=== PATIENT | female | born 1970 | race Caucasian/White ===

== ENCOUNTER 2024-08-25 08:31 | Outpatient (AMB) | payer BC, SELFPAY ==
--- NOTE | 2024-08-25 08:36 | A.OFFVIS_ITS ---
Vital Signs 08/25/24 08:39 Height 5 ft 6 in Weight 210 lb 12.191 oz BMI 34.0 BP 100/60 Blood Pressure Location Lt brachial Position Sitting Pulse 86 Pulse Source Pulse Oximeter Pulse Oximetry (%) 96 Oxygen Delivery Method Room Air Intake Visit Reasons: OA/cm Intake Note: Patient is here to follow up on OA. Allergies bacitracin [From Triple Antibiotic] Allergy (Mild, Verified 08/25/24 08:43) Rash celecoxib [From Celebrex] Allergy (Mild, Verified 08/25/24 08:43) Rash neomycin [From Triple Antibiotic] Allergy (Mild, Verified 08/25/24 08:43) Rash polymyxin B [From Triple Antibiotic] Allergy (Mild, Verified 08/25/24 08:43) Rash medical tape Allergy (Mild, Uncoded 08/25/24 08:43) Rash HPI HPI OA/cm: Details: lost 15lb on zepbound. Feels less pain/overall soreness. Left elbow pain started a couple of months ago. Lifting up cuff hurts. She has been applying diclofenac gel with benefit. She is avoiding sleeping on her left side due to pain. She is experiencing bilateral trochanteric bursa pain but left is worse than right. [facility] Medical History (Updated 08/25/24 @ 13:36 by Steven Becerra MD) Spondylarthritis Surgical History (Updated 08/25/24 @ 08:53 by Joann Bernal CMA) No pertinent past surgical history Family History (Updated 08/25/24 @ 08:54 by Joann Bernal CMA) Father Stroke Hypertension Mother Hypertension Hypercholesterolemia Diabetes Social History (Updated 08/25/24 @ 08:55 by Joann Bernal CMA) Alcohol intake: current Alcohol intake frequency: holidays/special occasions only Patient Tobacco Use Status: Never used Tobacco Review of Systems Const All systems reviewed & are unremarkable except as noted in HPI and below Physical Exam Vital Signs: Last Vital Signs Pulse 86 08/25/24 08:39 BP 100/60 08/25/24 08:39 Pulse Ox 96 08/25/24 08:39 Oxygen Delivery Method Room Air 08/25/24 08:39 BMI result Body Mass Index 34.0 Const Other: General: Comfortable CVS: RRR Respiratory: clear to auscultation bilaterally. Good respiratory effort Skin: No lesions seen MSK: Tender to palpate left lateral epicondyle with pain with resisted wrist extension. No synovitis of any joints. Good range of motion of upper extremities and lower extremities. Bilateral trochanteric bursa tenderness was palpated. Office Procedures AMB Joint Injection/Aspiration Joint Injection/Aspiration Secondary Site: left tennis elbow Prep: site was prepped using aseptic technique Injected: 20 mg of, Kenalog, with 0.5 mL of and 1% plain lidocaine Procedure: The patient tolerated the procedure well Coding 76209 - Epicondyle Procedure code (CPT) selection complete AMB Joint Injection/Aspiration Joint Injection/Aspiration Details: Left trochanteric bursa Prep: site was prepped using aseptic technique Injected: 40 mg of, Kenalog, with 1 mL of and 1% plain lidocaine Procedure: The patient tolerated the procedure well Coding 45993 - Large joint Procedure code (CPT) selection complete Office Meds Kenalog 40 mg/mL suspension for injection Performing Provider: Steven Becerra MD Performing Location: [facility] Administered by: Steven Becerra MD on 08/25/24 13:29 Dose Route Admin Location Dispensed Lot Number Expiration Date [facility][NOTE 3] Shovel Logger 20 mg Tendon Sheath Inj. 1 mL AP [id number] [employer] lidocaine (PF) 10 mg/mL (1 %) injection solution Performing Provider: Steven Becerra MD Performing Location: [facility] [place] [facility] Administered by: Steven Becerra MD on 08/25/24 13:29 Dose Route Admin Location Dispensed Lot Number Expiration Date [facility][NOTE 3] Shovel Logger 5 mg Infiltration 2 mL [id number] [facility] Kenalog 40 mg/mL suspension for injection Performing Provider: Steven Becerra MD Performing Location: [facility] [place] [facility] Administered by: Steven Becerra MD on 08/25/24 13:31 Dose Route Admin Location Dispensed Lot Number Expiration Date [facility][NOTE 3] Shovel Logger 40 mg intrabursal 1 mL AP [id number] [employer] lidocaine (PF) 10 mg/mL (1 %) injection solution Performing Provider: Steven Becerra MD Performing Location: [facility] [place] [facility] Administered by: Steven Becerra MD on 08/25/24 13:31 Dose Route Admin Location Dispensed Lot Number Expiration Date [facility][NOTE 3] Shovel Logger 10 mg Infiltration 2 mL [id number] [facility] Assessment & Plan Assessment & Plan (1) Spondylarthritis: Comment: History of spondyloarthropathy with HLA B27 positivity presenting with peripheral inflammatory arthritis and plantar fasciitis. Sulfasalazine started 02/08/2023 until present. In clinical remission. Code(s): M47.819 - Spondylosis without myelopathy or radiculopathy, site unspecified Category: Medical Plan: Continue sulfasalazine 1000 mg b.i.d. after lab results are back, we will send 90 day prescription. Labs for disease and drug monitoring ordered Return to clinic in 3 months (2) Other terminal system operator (current) drug therapy: Code(s): Z79.899 - Other terminal system operator (current) drug therapy Category: Medical Plan: See above (3) Medial epicondylitis, left elbow: Comment: Pain is uncontrolled. We discussed conservative management. She prefers cortisone injection over physical therapy. Code(s): M77.02 - Medial epicondylitis, left elbow Category: Medical Plan: Cortisone injection for treatment of lateral epicondylitis was given today Return to clinic in 3 months (4) Greater trochanteric bursitis of both hips: Comment: Left trochanteric bursa pain is greater than right side. We discussed conservative management Code(s): M70.61 - Trochanteric bursitis, right hip; M70.62 - Trochanteric bursitis, left hip Category: Medical Plan: Left trochanteric bursa cortisone injection given today Return to clinic in 3 months Orders: Orders Alanine Aminotransferase Today Z79.899 - Other terminal system operator (current) drug therapy Aspartate Amino Transferase Today Z79.899 - Other shelter (current) drug therapy C Reactive Protein Today Z79.899 - Other shelter (current) drug therapy Erythrocyte Sedimentation Rate Today Z79.899 - Other terminal system operator (current) drug therapy T Spot TB Today Z79.899 - Other terminal system operator (current) drug therapy AMB Joint Injection/Aspiration Today M77.02 - Medial epicondylitis, left elbow AMB Joint Injection/Aspiration Today M70.61 - Trochanteric bursitis, right hip, M70.62 - Trochanteric bursitis, left hip Creatinine Today Z79.899 - Other terminal system operator (current) drug therapy Complete Blood Count Auto Diff Today Z79.899 - Other shelter (current) drug therapy Hepatitis B,C Profile Today Z79.899 - Other shelter (current) drug therapy Coding Level of Care Code Est Pt Level 4 (10712) Complex EM visit Add On G2211 Diagnoses Spondylarthritis M47.819 Other shelter (current) drug therapy Z79.899 Medial epicondylitis, left elbow M77.02 Greater trochanteric bursitis of both hips M70.61; M70.62 CPT Codes Coding - Joint 2: - Epicondyle ([id number]) Coding - Large joint: 93793 - Large joint ([id number]) Comment Modifier 59 as needed 2 separate joint procedures
[2024-08-25 08:39] VITALS: BP 100/60; PULSE 86; O2SAT 96; BMI 34.0
== END 2024-08-25 09:50 | disposition home or self-care (01) ==
PROVIDERS: PCP Internal Medicine; Visit Provider Internal Medicine Rheumatology
DX: M47.819 Spondylosis without myelopathy or radiculopathy, site unspecified (principal); Z79.899 Other long term (current) drug therapy; M77.02 Medial epicondylitis, left elbow; M70.61 Trochanteric bursitis, right hip; M70.62 Trochanteric bursitis, left hip
CPT/HCPCS: 20551; 20610; 99214

== ENCOUNTER 2024-08-25 14:08 | Outpatient (REF) | payer OTHER, SELFPAY ==
[2024-08-25 17:36] LABS: MANUAL DIFF FLAG NO
[2024-08-25 17:47] LABS: Basophils Percent Auto 0.8 % (0-2); Eosinophils Percent Auto 0.8 % (0-4); Hematocrit 39.5 % (37.0-47.0); Imm Gran Abs Auto 0.01 X10*3/uL (0.00-0.03); Imm Gran Pct Auto 0.2 % (0.0-0.4); Mean Corpuscular HGB Conc 32.9 g/dl (31.0-35.0); Mean Platelet Volume 9.3 fL (9.4-12.3); Monocytes Absolute Auto 0.3 X10*3/uL (0.1-1.2); Monocytes Percent Auto 6.4 % (2-11); Neutrophils Absolute Auto 3.9 x10*3/uL (2.0-8.3); Neutrophils Percent Auto 73.8 % (45-73); Platelet Count 385 X10*3/uL (160-400); Red Cell Distribution Width 12.8 % (11.0-16.0); White Blood Count 5.3 X10*3/uL (4.8-10.8)
[2024-08-25 17:50] LABS: Alanine Aminotransferase 22 U/L (0-31); Aspartate Amino Transferase 24 U/L (5-31); Estimated Glomerular Filt Rate > 60
[2024-08-25 18:55] LABS: Erythrocyte Sedimentation Rate 25 MM/HR (0-20)
[2024-08-26 04:59] LABS: HBc Num1 0.08 S/CO (0.00-0.79); HBsAGNum1 0.56 S/CO (0.00-0.99); Hepatitis B Core Antibody Nonreactive (Nonreactive); Hepatitis B Surface Antigen Negative (Negative); ~HepC Num1 0.13 S/CO (0.00-0.79); ~Hepatitis B Surface Antibody REACTIVE (Nonreactive); ~Hepatitis C Antibody Nonreactive (Nonreactive)
[2024-08-28 08:48] LABS: TS Negative Control Passed; TS Panel A 0; TS Panel B 1; TS Positive Control Passed; TSpotTB Negative (Negative)
== END 2024-08-25 14:09 | disposition home or self-care (01) ==
LOC: HO.WFDLDS 14:08
PROVIDERS: Visit Provider Internal Medicine Rheumatology
DX: M70.61 Trochanteric bursitis, right hip (principal); M70.62 Trochanteric bursitis, left hip; M47.819 Spondylosis without myelopathy or radiculopathy, site unspecified; Z79.899 Other long term (current) drug therapy; M77.02 Medial epicondylitis, left elbow
CPT/HCPCS: 20551; 20610; 36415; 82565; 84450; 84460; 85025; 85652; 86140; 86481; 86704; 86706; 86803; 87340; J2003; J3300

== ENCOUNTER 2024-11-30 10:00 | Outpatient (REF) | payer BC, SELFPAY ==
--- NOTE | ~2024-11-30 | XR_ITS ---
EXAMINATION: XR HAND 3 OR MORE VIEWS LEFT HISTORY: M79.642 - Pain in left hand COMPARISON: There are no prior studies available for comparison. FINDINGS: Three views of the left hand are submitted. Osseous mineralization is normal. There is no fracture or dislocation. The joint spaces are preserved. The soft tissues are unremarkable. XR/XR hand LT min 3V IMPRESSION: Unremarkable examination of the left hand. Electronically signed by: Alireza Norris MD 12/01/2024 07:57 AM EDT
--- OUTSIDE RECORDS SUMMARY | 2024-11-30 12:53 | XMS_ITS | Clinical Summary ---
Author Organization [facility] Address [address] [place] [address] [place] [phone] Phone Care Team Providers Care Process Engineering Intern Name Role Phone Nikko Robbins MD Primary Care Provider Allergies Active Allergy Reactions Criticality Noted Date Comments Codeine Nausea Only 04/23/2017 Medications Medication Sig Dispensed Refills Start Date End Date Status ibuprofen (ADVIL,MOTRIN) 200 MG tablet Take 200 mg by mouth every 6 (six) hours as needed for pain (specific location in comments). Active Active Problems Problem Noted Date Diagnosed Date Degenerative disc disease, lumbar 04/23/2017 Social History Tobacco Use Types Packs/Day Years Used Date Smoking Tobacco: Never Smokeless Tobacco: Never Alcohol Use Standard Drinks/Week Comments Yes 2 (1 standard drink = 0.6 oz pur e alcohol) Education Answer Date Recorded Are you interested in more education? Not on nilda e 01/17/2023 Are you concerned about learning? Not on file 01/17/2023 No 01/17/2023 No 01/17/2023 Digital Access Answer Date Recorded No 02/17/2023 No 02/17/2023 No 02/17/2023 Reliable internet access at home? Not on file 02/17/2023 Device with a working camera? Not on file Sex and Gender Information Value Date Recorded Sex Assigned at Not on file Gender Identity Not on file Sexual Orientation Not on file Plan of Treatment Health Maintenance Due Date Last Done Comments Adult Td,Tdap Booster 1970 LIPID PANEL 1970 DEPRESSION SCREENING 1982 HEPATITIS C SCREENING 1988 HIV ONE-TIME SCREENING (18-6 5 YEARS) 1988 PAP SMEAR 1991 MAMMOGRAM 2010 COLOGUARD 2015 COLONOSCOPY 2015 COLORECTAL CANCER SCREENING 2015 FIT TEST 2015 FOBT 2015 SIGMOIDOSCOPY 2015 VIRTUAL COLONOSCOPY 2015 PNEUMOCOCCAL VACCINES (50+ years) (1 of 1 - PCV) 2020 ZOSTER VACCINES (1 of 2) 2020 INFLUENZA VACCINE (#1) 2024 COVID-19 VACCINE (3 - 2023-2 5 season) 2024 11/08/2020, 10/11/2020 SMOKING STATUS SCREENING (On ce After 26 Yrs) Completed 04/23/2017 HEPATITIS A VACCINES Aged Out No long er eligible based on patient's age to complete this topic HIB VACCINES Aged Out No longer eligi ble based on patient's age to complete this topic MENINGOCOCCAL VACCINES (ACWY) Aged Out No longer eligible based on patient's age to complete this topic Medical Devices Not on file Eleanor Villasenor Personal/Family Self 1970 [address] [place] [address] Eleanor Villasenor Personal/Family Self [address] [facility] [place] [address] Eleanor Villasenor Personal/Family Self 1970 [address] [place] [address] Eleanor Villasenor Personal/Family Self 1970 [address] [place] [address] Eleanor Villasenor Personal/Family Self 1970 [address] [place] [address] Eleanor Villasenor Personal/Family Self 1970 [address] [place] [address] Eleanor Villasenor Personal/Family Self 1970 [address] [place] Eleanor Villasenor Personal/Family Self [address] [place] Eleanor Villasenor Personal/Family Self 1970 [address] [place] [address] Eleanor Villasenor Workers Comp Self [address] [address] Care Teams Process Engineering Intern Relationship Specialty Start Date End Date Nikko Robbins MD [address] [place] [address] PCP - General Internal Medicine 07/21/17 Additional Source Comments The information contained in this document represents components of the legal health record. It is not the complete legal health record.[facility]
--- OUTSIDE RECORDS SUMMARY | 2024-11-30 12:53 | XMS_ITS | Encounter Summary ---
Author Organization [facility] Address [address] [place] [address] Phone Care Team Providers Care Kiln Operator Name Role Phone Nikko Robbins MD Primary Care Provider Encounter Details Date Type Department Care Team (Late st Contact Info) Description 08/04/2017 Procedure Pass [facility] PERIOPERATIVE DEPT [address] [place] [address] Social History Tobacco Use Types Packs/Day Years [...] on filedocumented in this encounter Care Teams Kiln Operator Relationship Specialty Start Date End Date Nikko Robbins MD [address] [place] [address] PCP - General Internal Medicine 07/21/17 documented as of this encounter Additional Source Comments The information contained in this document represents components of the legal health record. It is not the complete legal health record.[facility]
[2024-11-30 18:34] LABS: MANUAL DIFF FLAG NO
[2024-11-30 18:43] LABS: Basophils Absolute Auto 0.1 X10*3/uL (0.0-0.2); Basophils Percent Auto 0.9 % (0-2); Eosinophils Absolute Auto 0.1 X10*3/uL (0.0-0.4); Eosinophils Percent Auto 1.1 % (0-4); Hematocrit 39.1 % (37.0-47.0); Hemoglobin 12.5 g/dl (12.0-16.0); Imm Gran Abs Auto 0.02 X10*3/uL (0.00-0.03); Imm Gran Pct Auto 0.4 % (0.0-0.4); Lymphocytes Percent Auto 17.2 % (20-40); Mean Corpuscular Hemoglobin 31.4 pg (27.0-33.0); Mean Corpuscular Volume 98.2 fL (80.0-98.0); Mean Platelet Volume 10.4 fL (9.4-12.3); Monocytes Absolute Auto 0.4 X10*3/uL (0.1-1.2); Monocytes Percent Auto 6.6 % (2-11); Neutrophils Absolute Auto 4.2 x10*3/uL (2.0-8.3); Neutrophils Percent Auto 73.8 % (45-73); Platelet Count 301 X10*3/uL (160-400); Red Blood Count 3.98 X10*6/uL (4.20-5.50); Red Cell Distribution Width 13.8 % (11.0-16.0); White Blood Count 5.6 X10*3/uL (4.8-10.8)
[2024-11-30 19:46] LABS: Alanine Aminotransferase 24 U/L (0-31); Aspartate Amino Transferase 25 U/L (5-31); C Reactive Protein 0.29 mg/dL (< or = 0.50); Estimated Glomerular Filt Rate > 60
[2024-11-30 20:12] LABS: Erythrocyte Sedimentation Rate 13 MM/HR (0-20)
== END 2024-11-30 10:01 | disposition home or self-care (01) ==
LOC: HO.HKASLDS 10:00
PROVIDERS: PCP Internal Medicine; Visit Provider Internal Medicine Rheumatology
DX: M77.12 Lateral epicondylitis, left elbow (principal); M79.642 Pain in left hand; Z79.899 Other long term (current) drug therapy; Z79.60 Long term (current) use of unspecified immunomodulators and immunosuppressants; M47.819 Spondylosis without myelopathy or radiculopathy, site unspecified
CPT/HCPCS: 36415; 73130; 82565; 84450; 84460; 85025; 85652; 86140

== ENCOUNTER 2024-11-30 10:00 | Outpatient (AMB) | payer BC, SELFPAY ==
[2024-11-30 10:02] VITALS: BP 120/80; PULSE 76; O2SAT 96
--- NOTE | 2024-11-30 10:02 | A.OFFVIS_ITS ---
Vital Signs 11/30/24 10:02 Weight 196 lb 10.437 oz BP 120/80 Blood Pressure Location Lt brachial Position Sitting Pulse 76 Pulse Source Pulse Oximeter Pulse Oximetry (%) 96 Oxygen Delivery Method Room Air Intake Visit Reasons: Follow Up 3mo Intake Note: Patient is here to follow up on OA. Allergies bacitracin [From Triple Antibiotic] Allergy (Mild, Verified 11/30/24 10:02) Rash celecoxib [From Celebrex] Allergy (Mild, Verified 11/30/24 10:02) Rash neomycin [From Triple Antibiotic] Allergy (Mild, Verified 11/30/24 10:02) Rash polymyxin B [From Triple Antibiotic] Allergy (Mild, Verified 11/30/24 10:02) Rash medical tape Allergy (Mild, Uncoded 08/25/24 08:43) Rash HPI HPI Follow Up 3mo: Details: She feels well without joint swelling or stiffness. She has been experiencing constant left elbow pain extending to her forearm. In July she had an injury where she struck a knife that hit palmar aspect of 2nd MCP. That area healed but subsequently she developed pain surrounding the area. [facility] Medical History Spondylarthritis Surgical History No pertinent past surgical history Family History Father Stroke Hypertension Mother Hypertension Hypercholesterolemia Diabetes Social History Alcohol intake: current Alcohol intake frequency: holidays/special occasions only Patient Tobacco Use Status: Never used Tobacco Review of Systems Const All systems reviewed & are unremarkable except as noted in HPI and below Physical Exam Vital Signs: Last Vital Signs Pulse 76 11/30/24 10:02 BP 120/80 11/30/24 10:02 Pulse Ox 96 11/30/24 10:02 Oxygen Delivery Method Room Air 11/30/24 10:02 Const Other: General: Comfortable CVS: RRR Respiratory: clear to auscultation bilaterally. Good respiratory effort Skin: No lesions seen MSK: Tender to palpate left lateral epicondyle with pain with resisted wrist extension. Tender forearm muscles. She has hyperpigmentation with slight loss of a data post issue at area of injection from last visit. She has localized tenderness to palmar aspect of left MCP without swelling. No synovitis of any joints. Normal range of motion of upper extremities and lower extremities. No dactylitis. 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 Sulfasalazine started 02/08/2023 until present. Code(s): M47.819 - Spondylosis without myelopathy or radiculopathy, site unspecified Category: Medical Plan: Continue sulfasalazine 1000 mg b.i.d. Labs for disease and drug monitoring on high-risk medication ordered Return to clinic in 3 months (2) Other head athletic trainer (current) drug therapy: Code(s): Z79.899 - Other head athletic trainer (current) drug therapy Category: Medical Plan: See above (3) Left lateral epicondylitis: Comment: Failed cortisone injection from last visit. We discussed conservative management. Code(s): M77.12 - Lateral epicondylitis, left elbow Category: Medical Plan: Elbow support band prescribed PT ordered Start meloxicam 15 mg daily Return to clinic in 3 months (4) Left hand pain: Comment: She has localized tenderness to palmar aspect of 3rd MCP of unclear etiology. In July she had an injury with a knife lateral to area where she is experiencing pain. I will order x-ray for further evaluation if bone pathology is contributing. If x-ray is normal, MRI would be appropriate to evaluate for tendon tear contributing to pain. Code(s): M79.642 - Pain in left hand Category: Medical Plan: X-ray left hand ordered Orders: Orders Alanine Aminotransferase Today Z79.60 - direct customer service representative (current) use of unspecified immunomodulators and immunosuppressants C Reactive Protein Today Z79.899 - Other half-way (current) drug therapy PT Evaluation and Treatment Today M77.12 - Lateral epicondylitis, left elbow XR hand LT min 3V Today M79.642 - Pain in left hand Complete Blood Count Auto Diff Today Z79.60 - direct customer service representative (current) use of unspecified immunomodulators and immunosuppressants Creatinine Today Z79.60 - retirement (current) use of unspecified immunomodulators and immunosuppressants Aspartate Amino Transferase Today Z79.60 - retirement (current) use of unspecified immunomodulators and immunosuppressants Erythrocyte Sedimentation Rate Today Z79.899 - Other half-way (current) drug therapy Medications: New meloxicam 15 mg PO DAILY 30 tabs 2RF arm brace As directed left elbow support band Dx: lateral epicondylitis 1 ea 0RF Changed From sulfasalazine 1,000 mg (2 x 500 mg) PO BID 120 tabs 1RF To sulfasalazine 1,000 mg (2 x 500 mg) PO BID 90 days 360 tabs 0RF Coding Level of Care Code Est Pt Level 4 (25680) Complex EM visit Add On G2211 Diagnoses Spondylarthritis M47.819 Other head athletic trainer (current) drug therapy Z79.899 Left lateral epicondylitis M77.12 Left hand pain M79.642
--- OUTSIDE RECORDS SUMMARY | 2024-11-30 11:37 | XMS_ITS | Encounter Summary ---
Author Organization [facility] Address [address] [place] [address] Phone Care Team Providers Care Mimeograph Operator Name Role Phone Nikko Robbins MD Primary Care Provider Encounter Details Date Type Department Care Team (Late st Contact Info) Description 08/04/2017 Procedure Pass [facility] PERIOPERATIVE DEPT [address] [place] [address] Social History Tobacco Use Types Packs/Day Years Used Date Smoking Tobacco: Never Smokeless Tobacco: Never Alcohol Use Standard Drinks/Week Comments Yes 2 (1 standard drink = 0.6 oz pur e alcohol) Sex and Gender Information Value Date Recorded Sex Assigned at Not on file Gender Identity Not on file Sexual Orientation Not on file documented as of this encounter Plan of Treatment Not on file documented as of this encounter Visit Diagnoses Not on filedocumented in this encounter Care Teams Mimeograph Operator Relationship Specialty Start Date End Date Nikko Robbins MD [address] [place] [address] PCP - General Internal Medicine 07/21/17 documented as of this encounter Additional Source Comments The information contained in this document represents components of the legal health record. It is not the complete legal health record.[facility]
== END 2024-11-30 10:39 | disposition home or self-care (01) ==
LOC: HO.RHES 10:00
PROVIDERS: PCP Internal Medicine; Visit Provider Internal Medicine Rheumatology
DX: M47.819 Spondylosis without myelopathy or radiculopathy, site unspecified (principal); Z79.899 Other long term (current) drug therapy; M77.12 Lateral epicondylitis, left elbow; M79.642 Pain in left hand
CPT/HCPCS: 99214

== ENCOUNTER 2024-11-30 15:29 | Outpatient (REF) | payer BC, SELFPAY ==
--- OUTSIDE RECORDS SUMMARY | 2024-11-30 18:45 | XMS_ITS | Clinical Summary ---
Author Organization [facility] Address [address] [place] [address] [place] [address] Phone Care Team Providers Care Special Education Teachers Name Role Phone Nikko Robbins MD Primary [...] Self 1970 [address] [place] [address] Eleanor Villasenor Personal/Family Self 1970 [address] [facility] [address] Eleanor Villasenor Personal/Family Self 1970 [address] [place] [address] Eleanor Villasenor Personal/Family Self 1970 [address] [place] [address] Eleanor Villasenor Personal/Family Self 1970 [address] [place] [address] Eleanor Villasenor Personal/Family Self 1970 [address] [place] [address] Eleanor Villasenor Personal/Family Self 1970 [address] [place] Eleanor Villasenor Personal/Family Self 1970 [address] [place] Eleanor Villasenor Personal/Family Self 1970 [address] [place] [address] Eleanor Villasenor Workers Comp Self [address] [address] Care Teams Special Education Teachers Relationship Specialty Start Date End Date Nikko Robbins MD [address] [place] [address] PCP - General Internal Medicine 07/21/17 Additional Source Comments The information contained in this document represents components of the legal health record. It is not the complete legal health record.[facility]
--- OUTSIDE RECORDS SUMMARY | 2024-11-30 18:45 | XMS_ITS | Encounter Summary ---
Author Organization [facility] Address [address] [place] [address] Phone Care Team Providers Care Drapery Head Former Name Role Phone Nikko Robbins MD Primary Care Provider Encounter Details Date Type Department Care Team (Late st Contact Info) Description 08/04/2017 Procedure Pass [facility] PERIOPERATIVE DEPT [address] [place] [address] Social History Tobacco Use Types Packs/Day Years [...] on filedocumented in this encounter Care Teams Drapery Head Former Relationship Specialty Start Date End Date Nikko Robbins MD [address] [place] [address] PCP - General Internal Medicine 07/21/17 documented as of this encounter Additional Source Comments The information contained in this document represents components of the legal health record. It is not the complete legal health record.[facility]
== END 2024-11-30 15:30 | disposition home or self-care (01) ==
LOC: HO.HMGCX 15:29
PROVIDERS: PCP Internal Medicine; Visit Provider Internal Medicine Rheumatology
DX: Z13.89 Encounter for screening for other disorder (principal)

== ENCOUNTER → 2024-11-30 15:33 | Outpatient (BNV) | payer BC, SELFPAY | PROVIDERS: PCP Internal Medicine; Visit Provider Radiology Diagnostic Radiology | DX: M79.642 Pain in left hand (principal) | CPT/HCPCS: 73130 ==

== ENCOUNTER 2025-03-01 10:52 | Outpatient (REF) | payer BC, SELFPAY ==
[2025-03-01 17:57] LABS: MANUAL DIFF FLAG NO
[2025-03-01 18:17] LABS: Basophils Percent Auto 0.8 % (0-2); Eosinophils Absolute Auto 0.1 X10*3/uL (0.0-0.4); Eosinophils Percent Auto 1.4 % (0-4); Hematocrit 37.9 % (37.0-47.0); Hemoglobin 12.1 g/dl (12.0-16.0); Imm Gran Abs Auto 0.01 X10*3/uL (0.00-0.03); Imm Gran Pct Auto 0.2 % (0.0-0.4); Lymphocytes Absolute Auto 0.9 X10*3/uL (1.2-4.9); Lymphocytes Percent Auto 18.7 % (20-40); Mean Corpuscular HGB Conc 31.9 g/dl (31.0-35.0); Mean Corpuscular Hemoglobin 31.3 pg (27.0-33.0); Mean Corpuscular Volume 98.2 fL (80.0-98.0); Mean Platelet Volume 10.3 fL (9.4-12.3); Monocytes Absolute Auto 0.3 X10*3/uL (0.1-1.2); Monocytes Percent Auto 6.4 % (2-11); Neutrophils Absolute Auto 3.6 x10*3/uL (2.0-8.3); Neutrophils Percent Auto 72.5 % (45-73); Platelet Count 281 X10*3/uL (160-400); Red Blood Count 3.86 X10*6/uL (4.20-5.50); Red Cell Distribution Width 14.2 % (11.0-16.0)
[2025-03-01 18:25] LABS: Alanine Aminotransferase 27 U/L (0-31); Aspartate Amino Transferase 30 U/L (5-31); C Reactive Protein 0.32 mg/dL (< or = 0.50); Estimated Glomerular Filt Rate > 60
[2025-03-01 19:32] LABS: Erythrocyte Sedimentation Rate 9 MM/HR (0-20)
== END 2025-03-01 10:53 | disposition home or self-care (01) ==
LOC: HO.HKASLDS 10:52
PROVIDERS: PCP Internal Medicine; Visit Provider Internal Medicine Rheumatology
DX: M47.819 Spondylosis without myelopathy or radiculopathy, site unspecified (principal); Z79.899 Other long term (current) drug therapy; M77.12 Lateral epicondylitis, left elbow; M79.642 Pain in left hand
CPT/HCPCS: 36415; 82565; 84450; 84460; 85025; 85652; 86140

== ENCOUNTER 2025-03-01 10:52 | Outpatient (AMB) | payer BC, SELFPAY ==
--- NOTE | 2025-03-01 10:54 | MHC.OFFVIS ---
Vital Signs 03/01/25 10:57 Height 5 ft 6 in Weight 186 lb BMI 30.0 BP 120/80 Blood Pressure Location Lt brachial Position Sitting Pulse 88 Pulse Source Pulse Oximeter Pulse Oximetry (%) 99 Oxygen Delivery Method Room Air Intake Visit Reasons: 3 Months Intake Note: Patient is here to follow up on OA. Allergies bacitracin [From Triple Antibiotic] Allergy (Mild, Verified 03/01/25 10:57) Rash celecoxib [From Celebrex] Allergy (Mild, Verified 03/01/25 10:57) Rash neomycin [From Triple Antibiotic] Allergy (Mild, Verified 03/01/25 10:57) Rash polymyxin B [From Triple Antibiotic] Allergy (Mild, Verified 03/01/25 10:57) Rash medical tape Allergy (Mild, Uncoded 08/25/24 08:43) Rash HPI HPI 3 Months: Details: She has had decrease pain with occupational therapy but has reduced strength. She is unable to lift a lb with OT in left arm. Weakness is limiting function. She takes meloxicam PRN pain with Tylenol, which helps. Initially she was taking meloxicam daily. No new joint pain or swelling. No recent infections. [facility] Medical History Spondylarthritis Surgical History No pertinent past surgical history Family History Father Stroke Hypertension Mother Hypertension Hypercholesterolemia Diabetes Social History Alcohol intake: current Alcohol intake frequency: holidays/special occasions only Patient Tobacco Use Status: Never used Tobacco Physical Exam Vital Signs: Last Vital Signs Pulse 88 03/01/25 10:57 BP 120/80 03/01/25 10:57 Pulse Ox 99 03/01/25 10:57 Oxygen Delivery Method Room Air 03/01/25 10:57 BMI result Body Mass Index 30.0 Const Other: General: Comfortable CVS: RRR Respiratory: clear to auscultation bilaterally. Good respiratory effort Skin: No lesions seen MSK: Tender to palpate left lateral epicondyle without pain on resisted wrist extension. Tender forearm muscles. She has hyperpigmentation with slight loss of adipose tissue in area of injection from last visit. No tender joints. No synovitis of any joints. Normal range of motion of upper extremities and lower extremities. No dactylitis. 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 Sulfasalazine started 02/08/2023 until present. Code(s): M47.819 - Spondylosis without myelopathy or radiculopathy, site unspecified Category: Medical Plan: Continue sulfasalazine 1000 mg b.i.d. Labs for disease and drug monitoring on high-risk medication ordered She is on is a band for weight management. She plans to be on maintenance dosing in July. When she is on maintenance dosing, I will consider decreasing sulfasalazine to 500 mg twice a day Return to clinic in 3 months (2) Other skilled nursing (current) drug therapy: Code(s): Z79.899 - Other long wall mining machine tender (current) drug therapy Category: Medical Plan: See above (3) Left lateral epicondylitis: Comment: Failed cortisone injection, NSAID meloxicam and occupational therapy. Code(s): M77.12 - Lateral epicondylitis, left elbow Category: Medical Plan: Continue Elbow support band Continue exercises learned from PT She will use meloxicam 15 mg PRN. She will call office for prescription refill when she needs it MRI left elbow ordered without contrast for evaluation of tendon tear, which will necessitate surgical referral for repair Return to clinic in 3 months (4) Left hand pain: Comment: She had localized tenderness to palmar aspect of 3rd MCP near site of laceration with knife, resolved with OT. Code(s): M79.642 - Pain in left hand Category: Medical Plan: Monitor clinic Orders: Orders Erythrocyte Sedimentation Rate Today M47.819 - Spondylosis without myelopathy or radiculopathy, site unspecified Complete Blood Count Auto Diff Today M47.819 - Spondylosis without myelopathy or radiculopathy, site unspecified, Z79.60 - terminal supervisor (current) use of unspecified immunomodulators and immunosuppressants MR elbow LT wo con Today M77.12 - Lateral epicondylitis, left elbow C Reactive Protein Today M47.819 - Spondylosis without myelopathy or radiculopathy, site unspecified Alanine Aminotransferase Today M47.819 - Spondylosis without myelopathy or radiculopathy, site unspecified, Z79.60 - terminal supervisor (current) use of unspecified immunomodulators and immunosuppressants Aspartate Amino Transferase Today M47.819 - Spondylosis without myelopathy or radiculopathy, site unspecified, Z79.60 - terminal supervisor (current) use of unspecified immunomodulators and immunosuppressants Creatinine Today M47.819 - Spondylosis without myelopathy or radiculopathy, site unspecified, Z79.60 - shelter (current) use of unspecified immunomodulators and immunosuppressants Medications: Refilled sulfasalazine 1,000 mg (2 x 500 mg) PO BID 90 days 360 tabs 0RF Coding Level of Care Code Est Pt Level 4 (37858) Complex EM visit Add On G2211 Diagnoses Spondylarthritis M47.819 Other long wall mining machine tender (current) drug therapy Z79.899 Left lateral epicondylitis M77.12 Left hand pain M79.642
[2025-03-01 10:57] VITALS: BP 120/80; PULSE 88; O2SAT 99
== END 2025-03-01 11:24 | disposition home or self-care (01) ==
LOC: HO.RHES 10:52
PROVIDERS: PCP Internal Medicine; Visit Provider Internal Medicine Rheumatology
DX: M47.819 Spondylosis without myelopathy or radiculopathy, site unspecified (principal); Z79.899 Other long term (current) drug therapy; M77.12 Lateral epicondylitis, left elbow; M79.642 Pain in left hand
CPT/HCPCS: 99214

== ENCOUNTER 2025-03-08 19:13 | Outpatient (REF) | payer BC, SELFPAY ==
--- NOTE | ~2025-03-08 | MR_ITS ---
CLINICAL HISTORY: M77.12 - Lateral epicondylitis, left elbow --- Additional Notes or Special Instructions: ?tendon tear MR left elbow without gadolinium Comparison: None provided Findings: No fractures. No pathologic bone lesions. No effusion. Medial and lateral collateral ligaments intact. The examination demonstrates a partial tear of the common extensor tendon at its insertion on the lateral epicondyle. Normal ulnar nerve. IMPRESSION: The examination demonstrates a partial tear of the common extensor tendon at its insertion on the lateral epicondyle. Findings compatible with lateral epicondylitis. This document has been electronically signed by: Phil Pineda MD on 03/09/2025 12:21:30
== END 2025-03-08 19:14 | disposition home or self-care (01) ==
LOC: HO.MRI 19:13
PROVIDERS: PCP Internal Medicine; Visit Provider Internal Medicine Rheumatology
DX: M77.12 Lateral epicondylitis, left elbow (principal)
CPT/HCPCS: 73221

== ENCOUNTER → 2025-03-08 19:17 | Outpatient (BNV) | payer BC, SELFPAY | PROVIDERS: PCP Internal Medicine; Visit Provider Radiology Diagnostic Radiology | DX: M17.12 Unilateral primary osteoarthritis, left knee (principal) | CPT/HCPCS: 73221 ==

== ENCOUNTER 2025-06-01 10:03 | Outpatient (REF) | payer BC, SELFPAY ==
[2025-06-01 13:33] LABS: MANUAL DIFF FLAG NO
[2025-06-01 13:56] LABS: Hematocrit 37.7 % (37.0-47.0); Hemoglobin 12.5 g/dl (12.0-16.0); Imm Gran Abs Auto 0.02 X10*3/uL (0.00-0.03); Imm Gran Pct Auto 0.3 % (0.0-0.4); Lymphocytes Absolute Auto 1.1 X10*3/uL (1.2-4.9); Mean Corpuscular HGB Conc 33.2 g/dl (31.0-35.0); Mean Corpuscular Hemoglobin 31.8 pg (27.0-33.0); Mean Corpuscular Volume 95.9 fL (80.0-98.0); NRBC Abs Auto 0.000 X10*3/uL (0.0-0.012); NRBC Pct Auto 0.0 /100WBC (0.0-0.2); Platelet Count 287 X10*3/uL (160-400); Red Blood Count 3.93 X10*6/uL (4.20-5.50); White Blood Count 6.1 X10*3/uL (4.8-10.8)
[2025-06-01 14:07] LABS: Alanine Aminotransferase 32 U/L (0-31); Aspartate Amino Transferase 30 U/L (5-31); Estimated Glomerular Filt Rate > 60
== END 2025-06-01 10:04 | disposition home or self-care (01) ==
LOC: HO.HKASLDS 10:03
PROVIDERS: PCP Internal Medicine; Visit Provider Internal Medicine Rheumatology
DX: M47.819 Spondylosis without myelopathy or radiculopathy, site unspecified (principal); Z79.1 Long term (current) use of non-steroidal anti-inflammatories (NSAID); Z79.899 Other long term (current) drug therapy
CPT/HCPCS: 36415; 82565; 84450; 84460; 85025; 85652; 86140

== ENCOUNTER 2025-06-01 10:03 | Outpatient (AMB) | payer BC, SELFPAY ==
--- NOTE | 2025-06-01 10:10 | A.OFFVIS_ITS ---
Vital Signs 06/01/25 10:11 Height 5 ft 9 in Weight 169 lb 5.04 oz BMI 25.0 BP 110/60 Blood Pressure Location Lt brachial Position Sitting Pulse 77 Pulse Source Pulse Oximeter Pulse Oximetry (%) 100 Oxygen Delivery Method Room Air Intake Visit Reasons: 3 months Intake Note: Patient is here to follow up on OA. Accompanied by: Self / Same As Patient Allergies bacitracin (From Triple Antibiotic) Allergy (Mild, Verified 06/01/25 10:13) Rash celecoxib (From Celebrex) Allergy (Mild, Verified 06/01/25 10:13) Rash neomycin (From Triple Antibiotic) Allergy (Mild, Verified 06/01/25 10:13) Rash polymyxin B (From Triple Antibiotic) Allergy (Mild, Verified 06/01/25 10:13) Rash medical tape Allergy (Mild, Uncoded 08/25/24 08:43) Rash HPI HPI 3 months: Details: She feels well. No morning stiffness. No infections. In the last 2 months she has been experiencing neck pain. She has had difficulty sleeping because of neck pain. Certain movements will lead to strain of neck. She continues to have full range of motion. Recently she had an episode of acute on chronic neck pain causing limited rotation for few hours. She takes meloxicam at bedtime when pain is worse. She tried different pillows without benefit. She had surgery left lateral epicondyle in March. She continues to have pain with certain movements. She will be following up with orthopedic surgeon soon. [facility] Medical History Spondylarthritis Surgical History No pertinent past surgical history Family History Father Stroke Hypertension Mother Hypertension Hypercholesterolemia Diabetes Social History Alcohol intake: current Alcohol intake frequency: holidays/special occasions only Patient Tobacco Use Status: Never used Tobacco Physical Exam Vital Signs: Last Vital Signs Pulse 77 06/01/25 10:11 BP 110/60 06/01/25 10:11 Pulse Ox 100 06/01/25 10:11 Oxygen Delivery Method Room Air 06/01/25 10:11 BMI result Body Mass Index 25.0 Const Other: General: Comfortable CVS: RRR Respiratory: clear to auscultation bilaterally. Good respiratory effort Skin: No lesions seen MSK: Tender to palpate mid spinous process of cervical spine. Full range of motion of cervical spine. She has hyperpigmentation with slight loss of adipose tissue in area of injection from last visit. No tender joints. No synovitis of any joints. Normal range of motion of upper extremities and lower extremities. No dactylitis. Assessment & Plan Assessment & Plan (1) Neck pain: Comment: Two-month history. She has localized pain to his mid spinous process ? Arthritis contributing. We discussed conservative management. Code(s): M54.2 - Cervicalgia Category: Medical Plan: She will apply lidocaine patch to affected area daily Apply heat to affected area daily She will try using TENs unit C-spine x-ray ordered to rule out joint pathology contributing Return to clinic in 3 months (2) Spondylarthritis: Comment: In clinical remission. History of spondyloarthropathy with HLA B27 positivity presenting with peripheral inflammatory arthritis and plantar fasciitis. Sulfasalazine started 02/08/2023 until present. Code(s): M47.819 - Spondylosis without myelopathy or radiculopathy, site unspecified Category: Medical Plan: Continue sulfasalazine 1000 mg b.i.d. Labs for disease and drug monitoring on high-risk medication ordered Return to clinic in 3 months (3) [facility] [place] [facility] drug therapy: Code(s): Z79.899 - Other terminal make up operator (current) drug therapy Category: Medical Plan: See above Orders: Orders Alanine Aminotransferase Today Z79.899 - Other [place] [facility] (current) drug therapy Aspartate Amino Transferase Today Z79.899 - Other [place] [facility] (current) drug therapy Creatinine Today Z79.899 - Other terminal make up operator (current) drug therapy XR cervical spine 3V Today M54.2 - Cervicalgia Complete Blood Count Auto Diff Today Z79.899 - Other [place] [facility] (current) drug therapy C Reactive Protein Today Z79.899 - Other terminal make up operator (current) drug therapy Erythrocyte Sedimentation Rate Today Z79.899 - Other terminal make up operator (current) drug therapy Medications: Changed From sulfasalazine 1,000 mg (2 x 500 mg) PO BID 90 days 360 tabs 0RF To sulfasalazine Dispense 90 day supply 1,000 mg (2 x 500 mg) PO BID 360 tabs 0RF 90 days Coding Level of Care Code Est Pt Level 4 (07515) Complex EM visit Add On G2211 Diagnoses Neck pain M54.2 Spondylarthritis M47.819 Other terminal make up operator (current) drug therapy Z79.899
[2025-06-01 10:11] VITALS: BP 110/60; PULSE 77; O2SAT 100; BMI 25.0
--- OUTSIDE RECORDS SUMMARY | 2025-06-01 12:11 | XMS_ITS | Encounter Summary ---
Author Organization [facility] Address [address] [place] [address] [place] [id number] Phone Care Team Providers Care Scaffolding Helper Name Role Phone Nikko Robbins MD Primary Care Provider Encounter Details Date Type Department Care Team (Late st Contact Info) Description 03/30/2025 Transcribe Orders [facility], Radio Flouroscopy [address] [place] [address] Meghana Espinal [address] [place] [phone] [email or web address] Social History Tobacco Use Types Packs/Day Years [...] Answer Date Recorded No 02/17/2023 No 02/17/2023 Reliable internet access at home? Not on file 02/17/2023 Device with a working camera? Not on file Comments Unknown Sex and Gender Information Value Date Recorded Sex Assigned at Female 03/11/2025 1:21 PM EDT Legal Sex Female 1:40 PM EDT Gender Identity Female 03/11/2025 1:21 PM EDT Sexual Orientation Straight 03/11/2025 1: 21 PM EDT documented as of this encounter Plan of Treatment Upcoming Encounters Date Type Department Care Team (Late st Contact Info) Description 06/06/2025 1:45 PM EDT Office Visit [facility] Plastic and Reconstructive Surgery [address] [facility], [address] [place] [address] Dilshad Grossman MD [address] [place] [address] [email or web address] documented as of this encounter Visit Diagnoses Not on filedocumented in this encounter Care Teams Scaffolding Helper Relationship Specialty Start Date End Date Nikko Robbins MD [address] [place] [address] PCP - General Internal Medicine 07/21/17 documented as of this encounter Additional Source Comments The information contained in this document represents components of the legal health record. It is not the complete legal health record.[facility]
--- OUTSIDE RECORDS SUMMARY | 2025-06-01 12:11 | XMS_ITS | Clinical Summary ---
Author Organization [facility] Address [address] [place] [address] Phone Care Team Providers Care Certified First Assistant Name Role Phone Nikko Robbins MD Primary Care Provider Allergies Active Allergy Reactions Criticality Noted Date Comments Codeine Nausea Only 04/23/2017 Medications meloxicam (MOBIC) 15 MG tablet Take 15 mg by mouth daily. 5 Active sulfaSALAzine (AZULFIDINE) 500 mg tablet Take 500 mg by mouth 2 (two) times a day. 5 Active ZEPBOUND 12.5 mg/0.5 mL subcutaneous pen 12.5 mg once a week. 5 Active acetaminophen (TYLENOL) 325 mg tablet Take 2 tablets (650 mg total) by mouth every 6 (six) hours as needed for pain (specific location in comments). 5 Active oxyCODONE 5 MG immediate release tablet Take 1 tablet (5 mg total) by mouth every 6 (six) hours as needed for pain (specific location in comments). Partial fill ok 8 tablet 5 Active ondansetron (ZOFRAN-ODT) 4 MG disintegrating tablet Take 1 tablet (4 mg total) by mouth every 8 (eight) hours as needed for nausea. 4 tablet 5 Active HYDROcodone-acetami nophen (NORCO) 5-325 mg per tablet Take 1 tablet by mouth every 6 (six) hours as needed for pain (specific location in comments). Partial fill ok 5 tablet 5 Active Active Problems Problem Noted Date Diagnosed Date Allergic rhinitis 04/20/2025 Degenerative disc disease, lumbar 04/23/2017 Encounters Date Type Department Care Team Description 05/09/2025 1:15 PM EDT Office Visit [facility] [address] [place] [address], 4th Floor, [address] [place] [address] Dilshad Grossman MD Arm pain, anterior, left (Primary Dx) 04/20/2025 9:33 AM EDT Anesthesia Event [facility] [address] [place] [phone] Alexander Bravo MD Marden, Britta M, RN 04/20/2025 9:30 AM EDT - 04/20/2025 12:10 PM EDT Surgery [facility] [address] [place] [phone] Dilshad Grossman MD RADIAL TUNNEL RELEASE AND LATERAL EPICONDYLITIS DEBRIDEMENT 04/20/2025 8:00 AM EDT Ancillary Procedure [facility] Bedside Ultrasound VRT [address] [place] [address] Alana Chaparro MD, PhD Meghana Childers MD 04/20/2025 7:43 AM EDT - 04/20/2025 3:51 PM EDT Hospital Encounter [facility] [address] [place] [phone] Meghana Childers MD Eberlin, Kyle R, MD Discharge Disposition: Home or Self Care 04/20/2025 Procedure Pass [facility] [address] [place] [phone] 04/05/2025 1:00 PM EDT Pre-Admission Testing [facility] Pre-Procedure Evaluation Department [place] [phone] Meghana Childers MD 03/30/2025 3:15 PM EDT Office Visit [facility] [place] of Orthopaedic Surgery, Hand & Upper Extremity Service [address] [place] [address], 2nd Floor, [address] [place] [address] Meghana Childers MD McCarty, Justin C, DO Left lateral epicondylitis (Primary Dx) 03/30/2025 1:57 PM EDT - 03/30/2025 11:59 PM EDT Hospital Encounter [facility] - Ultrasound [address] [place] [address] Roberto Carlos Antoine, Discharge Disposition: Home or Self Care 03/30/2025 Transcribe Orders [facility], Radio Flouroscopy [address] [place] [address] Meghana Espinal 03/28/2025 9:00 AM EDT Office Visit [facility] [place] of [place]opaedic Surgery, Hand & Upper Extremity Service [address] [facility], 2nd Floor, [address] [place] [address] Meghana Childers MD Left lateral epicondylitis (Primary Dx) 03/28/[address] [facility] - Ultrasound [address] [place] [address] 03/28/2025 Ancillary Orders [facility] [address] [place] [address] Meghana Childers MD 03/24/2025 Orders Only [facility] Department of Orthopaedic Surgery, Hand & Upper Extremity Service [address] [facility], 2nd Floor, [address] [place] [address] Patrica Angelo MA Elbow pain (Primary Dx) 03/08/2025 - 03/08/2025 11:59 PM EDT Hospital Encounter [facility] [address] [place] [address] Meghana Childers MD Discharge Disposition: Home or Self Care from Last 3 Months Social History Tobacco Use Types Packs/Day Years Used Date Smoking Tobacco: Never Smokeless Tobacco: Never Tobacco Cessation:Counseling Given: Not Answered Alcohol Use Standard Drinks/Week Comments Yes 2 [...] with a working camera? Not on file Intimate Partner Violence Answer Date R ecorded Are you denied basic needs s uch as food, clothing, or medical care? No 04/20/2025 In the past 12 months have y ou been in a relationship with a person who hurts, threatens, or tries to control you? No 04/20/2025 Are you denied basic needs s uch as food, clothing, or medical care? No 04/20/2025 In the past 12 months have y ou been in a relationship with a person who hurts, threatens, or tries to control you? No 04/20/2025 Comments No Sex and Gender Information Value Date Recorded Sex Assigned at Female 03/11/2025 1:21 PM EDT Legal Sex Female 1:40 PM EDT Gender Identity Female 03/11/2025 1:21 PM EDT Sexual Orientation Straight 03/11/2025 1: 21 PM EDT Last Filed Vital Signs Vital Sign Reading Time Taken Comments Blood Pressure 116/58 04/20/2025 2:50 PM EDT Pulse 67 04/20/2025 2:50 PM EDT Temperature 36.5 C (97.7 F) 04/20/2025 11:00 AM EDT Respiratory Rate 16 04/20/2025 1:50 PM EDT Oxygen Saturation 100% 04/20/2025 2:50 PM EDT Inhaled Oxygen Concentration - - Weight 76.2 kg (168 lb) 04/05/2025 12:56 PM EDT Height 167.6 cm (5' 6 ) 04/05/2025 12:56 PM EDT Body Mass Index 27.12 04/05/2025 12:56 PM EDT Plan of Treatment Upcoming Encounters Date Type Department Care Team (Late st Contact Info) Description 06/06/2025 1:45 PM EDT Office Visit [facility] [address] [place] [address], 4th Floor, [address] [place] [address] Dilshad Grossman MD [address] [place] [phone] [email or web address] Health Maintenance Due Date Last Done Comments LIPID PANEL 1970 DEPRESSION SCREENING 1982 HEPATITIS C SCREENING 1988 HIV ONE-TIME SCREENING (18-6 5 YEARS) 1988 PAP SMEAR 1991 SCREENING FOR DIABETES 2005 MAMMOGRAM 2010 COLOGUARD 2015 COLONOSCOPY 2015 COLORECTAL CANCER SCREENING 2015 FIT TEST 2015 FOBT 2015 SIGMOIDOSCOPY 2015 VIRTUAL COLONOSCOPY 2015 PNEUMOCOCCAL VACCINES (50+ years) (1 of 1 - PCV) 2020 ZOSTER VACCINES (1 of 2) 2020 INFLUENZA VACCINE (#1) 2025 COVID-19 VACCINE (3 - 2024-2 6 season) 2025 11/08/2020, 10/11/2020 Adult Td,Tdap Booster 07/23/2033 07/23/2023 SMOKING STATUS SCREENING (On ce After 26 Yrs) Completed 04/05/2025 HEPATITIS A VACCINES Aged Out No long er eligible based on patient's age to complete this topic HIB VACCINES Aged Out No longer eligi ble based on patient's age to complete this topic MENINGOCOCCAL VACCINES (ACWY) Aged Out No longer eligible based on patient's age to complete this topic MENINGOCOCCAL VACCINES (B) Aged Out N o longer eligible based on patient's age to complete this topic Medical Devices Not on file Procedures Procedure Name Priority Date/Time Associated Diagnosis Comments AK ANESTHESIA PERIPHERAL BLOCK PLACEHOLDER Routine 04/20/2025 12:45 PM EDT AIRWAY PLACEMENT Routine 04/20/2025 9:55 AM EDT AK TENOTOMY ELBOW LATERAL/MEDIAL PERCUTANEOUS 04/20/2025 9:36 AM EDT Pain of left forearm Special Needs PLACED PER DR CHILDERS ON 03/31 URINE HCG Routine 04/20/2025 8:01 AM EDT ANESTHESIA POINT OF CARE IMAGE CAPTURE Routine 04/20/2025 7:59 AM EDT IR INJECTION Routine 03/30/2025 2:38 PM EDT Left lateral epicondylitis MRI UPPER EXTREMITY OUTSIDE (NO INTERPRETATION) Routine 03/08/2025 12:00 AM EDT from Last 3 Months Results * AK ANESTHESIA PERIPHERAL BLOCK PLACEHOLDER (04/20/2025 12:45 PM EDT) Narrative Alana Chaparro MD, PhD - 04/20/2025 12:45 PM EDT Alana Chaparro MD, PhD 04/20/2025 12:46 PM Peripheral Block Placement Procedure Note: Reason for block: surgeon request, at patient's request and post op pain managment Block performed by: fellow/resident/INTERNET DATABASE SPECIALIST Anesthesiologist: Kendall Us MD Fellow/Resident/INTERNET DATABASE SPECIALIST: Alana Chaparro MD, PhD Other person performing block: Clemente Sainz MD, MPH [place] Protocol Performed: consent obtained, patient identified with 2 identifiers, correct procedure verified, correct site and laterality confirmed, verified equipment, coagulation status reviewed and implant history reviewed. Procedure Details: ASA monitors applied during procedure and vitals signs recorded in nursing flowsheet during procedure. Block type: single shot Ultrasound device used: Bizzby Laterality: left Block location: upper extremity and supraclavicular brachial plexus Patient position: supine Prep: chloraprep Image guidance: ultrasound guidance Ultrasound image: stored Needle visualization: good Nerve visualization: good Block Technique Block technique: ultrasound guided Needle type: stimulating needle used Needle gauge: 22 Injection assessment:incremental injection, negative aspiration for heme and no paresthesia on injection Paresthesia: none Needle length: 8cm Post Block Placement Assessment Complications Observed: No Notes Block Notes: Block site marked; timeout performed verifying location, laterality, and procedure. Lidocaine 1% local SC infiltration at site. Under ultrasonic verification the brachial plexus were identified in the supraclavicular fossa. First under ultrasonic visualization the needle was advanced and local anesthetic was injected into the corner pocket adjacent to the lower trunk, The brachial plexus was then approximated and the local anesthetic was injected easily and without pain in 5cc aliquots post negative aspiration. The patient experienced no paresthesias. The procedure was well tolerated by the patient. us Kendall Us MD AK ANESTHESIA Final Result * ANES ETT DOUBLE LUMEN - AIRWAY LDA (04/20/2025 9:55 AM EDT) Artem Alexandra Meng, CRNA - 04/20/2025 9:55 AM EDT Artem Campbell CRNA 04/20/2025 9:56 AM Airway Placement Procedure Note: Procedure performed by: fellow/resident/INTERNET DATABASE SPECIALIST Anesthesiologist: Alexander Bravo MD Fellow/Resident/INTERNET DATABASE SPECIALIST: Artem Campbell CRNA Airway procedure initiated at:04/20/2025 9:55 AM and ended at. Personal Protective Equipment: Mask: surgical mask Eye Protection: eye shield Gloves: gloves Mask Ventilation: Quality: not attempted Airway Placement: Technique: LMA Rapid sequence induction: no LMA Insertion: LMA size: 4 LMA placement attempts: 1. Outcomes: Evidence of dental injury? no us Alexander Bravo MD AK ANESTHESIA Final Result * HCG, urine (04/20/2025 8:01 AM EDT) URINE TEST Negative Negative [facility] Urine (Urine) 04/20/2025 8:0 1 AM EDT 04/20/2025 8:20 AM EDT us Meghana Childers MD UR[place] [address] * ANESTHESIA POINT OF CARE IMAGE CAPTURE (04/20/2025 7:59 AM EDT) Anatomical Region Laterality Modality Ultrasound Narrative 04/20/2025 7:59 AM EDT Alana Chaparro MD, PhD 04/20/2025 7:59 AM Anesthesia Point of Care Image Capture Performed by: Alana Chaparro MD, PhD Authorized by: Alana Chaparro MD, PhD Accession Number: [id number] us Alana Chaparro MD, PhD IMG POINT OF CARE EXAMS Fin al Result * IR Non-Spine Injection; Peripheral Nerve; Upper Extremity; Radial; Left; Anesthetic Only; Diagnostic (03/30/2025 2:38 PM EDT) Anatomical Region Laterality Modality L-spine Ultrasound 03/30/2025 4:55 PM EDT Impressions 03/30/2025 4:59 PM EDT Ultrasound-guided left radial nerve injection. Narrative 03/30/2025 4:59 PM EDT IR INJECTION Referring clinician's provided indication for this examination in Epic: R/o radial tunnel syndrome PROCEDURE: Ultrasound-guided steroid/anesthetic painter chassis: Dr. Philip Vizcaino, the teaching physician performed the entire procedure. CONSENT: The patient was informed of the nature of the proposed procedure. The purposes, alternatives, risks, and benefits were explained and discussed. All questions were answered and written consent was obtained. A time-out was performed prior to initiation of the procedure to reconfirm the patient's name, date of , and site of procedure. TARGET: Left radial nerve MEDICATIONS: 1% lidocaine for local anesthetic 2.5 mL ropivacaine 0.5% and 2.5 mL lidocaine, 5 mL NEEDLE: 2 inch 25-gauge TECHNIQUE: The patient was positioned on the table and a suitable site for needle insertion was marked using image guidance. The skin was prepped and draped in the usual sterile fashion. Local anesthetic was used for skin, subcutaneous and deep soft tissue anesthesia. Under ultrasound guidance, the needle was injected into the target and subsequent distention with medications. The needle was removed and a bandage was applied. There were no complications. FINDINGS: Pre-procedure Pain Score: 4 Post-procedure Pain Score: 1 POST-PROCEDURE: Discharge instructions and pain diary were explained to the patient. Procedure Note Eusebia Vizcaino MD - 03/30/2025 IR INJECTION Referring clinician's provided indication for this examination in Epic:R/o radial tunnel syndrome PROCEDURE: Ultrasound-guided steroid/anesthetic painter chassis: Dr. Philip Vizcaino, the teaching physician performed the entire procedure. CONSENT: The patient was informed of the nature of the proposed procedure. Thepurposes, alternatives, risks, and benefits were explained and discussed.All questions were answered and written consent was obtained. A time-out was performed prior to initiation of the procedure to reconfirm thepatient's name, date of , and site of procedure. TARGET: Left radial nerve MEDICATIONS: 1% lidocaine for local anesthetic 2.5 mL ropivacaine 0.5% and 2.5 mL lidocaine, 5 mL NEEDLE: 2 inch 25-gauge TECHNIQUE: The patient was positioned on the table and a suitable site for needleinsertion was marked using image guidance. The skin was prepped and drapedin the usual sterile fashion. Local anesthetic was used for skin,subcutaneous and deep soft tissue anesthesia. Under ultrasound guidance,the needle was injected into the target and subsequent distention withmedications. The needle was removed and a bandage was applied. There wereno complications. FINDINGS: Pre-procedure Pain Score: 4 Post-procedure Pain Score: 1 POST-PROCEDURE: Discharge instructions and pain diary were explained to the patient. IMPRESSION: Ultrasound-guided left radial nerve injection. us Meghana Childers MD IMG IR MSK Final Result * MRI Outside Upper Extremity (No Interpretation) (03/08/2025 12:00 AM EDT) Narrative [facility] - 03/28/2025 8:59 AM EDT This study is for PACS storage only and not for interpretation. us Meghana ESCOBEDOG OUTSIDE IMAGING W/OUT INTERP RETATION Final Result [facility] INTERFACES from Last 3 Months Insurance [facility] [address] [place] [address] [facility] Care Teams Certified First Assistant Relationship Specialty Start Date End Date Nikko Robbins MD [address] [place] [address] PCP - General Internal Medicine 07/21/17 Additional Source Comments The information contained in this document represents components of the legal health record. It is not the complete legal health record.[facility]
--- OUTSIDE RECORDS SUMMARY | 2025-06-01 12:11 | XMS_ITS | Encounter Summary ---
Author Organization [facility] Address [address] [place] [address] [place] [phone] Phone Care Team Providers Care Personnel Recruiter Name Role Phone Nikko Robbins MD Primary Care Provider Encounter Details Date Type Department Care Team (Late st Contact Info) Description 08/04/2017 Procedure Pass [facility] PERIOPERATIVE DEPT [address] [place] [address] Social History Tobacco Use Types Packs/Day Years Used Date Smoking Tobacco: Never Smokeless Tobacco: Never Alcohol Use Standard Drinks/Week Comments Yes 2 (1 standard drink = 0.6 oz pur e alcohol) Comments Unknown Sex and Gender Information Value [...] Description 06/06/2025 1:45 PM EDT Office [place] [facility] [place] [address] [place] [address], 4th Floor, [address] [place] [address] Dilshad Grossman MD [address] [place] [address] [email or web address] [email or web address] documented as of this encounter Visit Diagnoses Not on filedocumented in this encounter Care Teams Personnel Recruiter Relationship Specialty Start Date End Date Nikko Robbins MD [address] [place] [address] PCP - General Internal Medicine 07/21/17 documented as of this encounter Additional Source Comments The information contained in this document represents components of the legal health record. It is not the complete legal health record.[facility]
--- OUTSIDE RECORDS SUMMARY | 2025-06-01 12:11 | XMS_ITS | Encounter Summary ---
Author Organization [facility] Address [facility] [address] [place] [address] Phone Care Team Providers Care Palaeontologist Name Role Phone Nikko Robbins MD Primary Care Provider Encounter Details Date Type Department Care Team (Late st Contact Info) Description 04/20/[address] [facility] [place] [place]PT [address] [place] [address] Social History Tobacco Use Types Packs/Day Years [...] Description 06/06/2025 1:45 PM EDT Office Visit [facility] Plastic and Reconstructive Surgery [address] [facility], 4th Floor, [address] [place] [address] Dilshad Grossman MD [address] [place] [address] [email or web address] documented as of this encounter Visit Diagnoses Not on filedocumented in this encounter Care Teams Palaeontologist Relationship Specialty Start Date End Date Nikko Robbins MD [address] [place] [phone] PCP - General Internal Medicine 07/21/17 documented as of this encounter Additional Source Comments The information contained in this document represents components of the legal health record. It is not the complete legal health record.[facility]
--- OUTSIDE RECORDS SUMMARY | 2025-06-01 12:11 | XMS_ITS | Encounter Summary ---
Author Organization [facility] Address [address] [place] [address] [place] [phone] Phone Care Team Providers Care Bulldogger Name Role Phone Nikko Robbins MD Primary Care Provider Encounter Details Date Type Department Care Team (Late st Contact Info) Description 03/28/2025 Procedure Pass [facility] - Ultrasound [address] [place] [address] Social History Tobacco Use Types Packs/Day Years [...] Description 06/06/2025 1:45 PM EDT Office Visit [facility] [place]ive Surgery [address] [facility], 4th Floor, [address] [place] [address] Dilshad Grossman MD [address] [place] [address] [email or web address] documented as of this encounter Visit Diagnoses Not on filedocumented in this encounter Care Teams Bulldogger Relationship Specialty Start Date End Date Nikko Robbins MD [address] [place] [address] PCP - General Internal Medicine 07/21/17 documented as of this encounter Additional Source Comments The information contained in this document represents components of the legal health record. It is not the complete legal health record.[facility]
== END 2025-06-01 10:44 | disposition home or self-care (01) ==
LOC: HO.RHES 10:03
PROVIDERS: PCP Internal Medicine; Visit Provider Internal Medicine Rheumatology
DX: M54.2 Cervicalgia (principal); M47.819 Spondylosis without myelopathy or radiculopathy, site unspecified; Z79.899 Other long term (current) drug therapy
CPT/HCPCS: 99214

== ENCOUNTER 2025-06-02 15:27 | Outpatient (REF) | payer BC, SELFPAY ==
--- NOTE | ~2025-06-02 | XR_ITS ---
EXAM: CR Xr Cervical Spine 3v TECHNIQUE: AP, AP open-mouth odontoid, and lateral view x-ray cervical spine INDICATION: Neck pain PRIOR: None FINDINGS: There is straightening of the cervical lordosis. There is no prevertebral soft tissue swelling. There is mild disc space narrowing at C5-6 and C6-7 with endplate osteophytes and small facet osteophytes. XR/XR cervical spine 3V IMPRESSION: There is straightening of the expected cervical lordosis. This can be idiopathic, but can also be related to degenerative change, muscle spasm, or posterior soft tissue injury. Mild degenerative changes are present at C5-6 and C6-7. Electronically signed by: Piyush Mendenhall MD 06/02/2025 03:49 PM EDT
--- OUTSIDE RECORDS SUMMARY | 2025-06-02 18:37 | XMS_ITS | Encounter Summary ---
Author Organization [facility] Address [address] [place] [address] [place] [phone] Phone Care Team Providers Care Property Disposal Manager Name Role Phone Nikko Robbins MD Primary Care Provider Encounter Details Date Type Department Care Team (Late st Contact Info) Description 03/28/2025 Procedure Pass [facility] - Ultrasound [address] [place] [address] Social History Tobacco Use Types Packs/Day Years [...] Description 06/06/2025 1:45 PM EDT [place] [facility] [place] [address] [facility], 4th Floor, [address] [place] [address] Dilshad Grossman MD [address] [place] [address] [email or web address] documented as of this encounter Visit Diagnoses Not on filedocumented in this encounter Care Teams Property Disposal Manager Relationship Specialty Start Date End Date Nikko Robbins MD [address] [place] [address] PCP - General Internal Medicine 07/21/17 documented as of this encounter Additional Source Comments The information contained in this document represents components of the legal health record. It is not the complete legal health record.[facility]
--- OUTSIDE RECORDS SUMMARY | 2025-06-02 18:37 | XMS_ITS | Encounter Summary ---
Author Organization [facility] Address [address] [place] [address] [place] [address] Phone Care Team Providers Care Herb Doctor Name Role Phone Nikko Robbins MD Primary Care Provider Encounter Details Date Type Department Care Team (Late st Contact Info) Description 08/04/2017 Procedure Pass [facility] PERIOPERATIVE DEPT [address] [place] [address] Social History Tobacco Use Types Packs/Day Years [...] 06/06/2025 1:45 PM EDT Office Visit [facility]ive Surgery [address] [place] [address], 4th Floor, [address] [place] [address] Dilshad Grossman MD [address] [place] [phone] [email or web address] documented as of this encounter Visit Diagnoses Not on filedocumented in this encounter Care Teams Herb Doctor Relationship Specialty Start Date End Date Nikko Robbins MD [address] [place] [address] PCP - General Internal Medicine 07/21/17 documented as of this encounter Additional Source Comments The information contained in this document represents components of the legal health record. It is not the complete legal health record.[facility]
--- OUTSIDE RECORDS SUMMARY | 2025-06-02 18:37 | XMS_ITS | Encounter Summary ---
Author Organization [facility] Address [address] [place] [address] [place] [phone] Phone Care Team Providers Care Keyboard Action Assembler Name Role Phone Nikko Robbins MD Primary Care Provider Encounter Details Date Type Department Care Team (Late st Contact Info) Description 03/30/2025 Transcribe Orders [facility], Radio Flouroscopy [address] [place] [address] Meghana Espinal [address] [place] [phone] [email or web address] Social History Tobacco Use Types Packs/Day [...] Description 06/06/2025 1:45 PM EDT Office Visit [facility] [address] [facility], 4th Floor, [address] [place] [address] Dilshad Grossman MD [address] [place] [address] [email or web address] documented as of this encounter Visit Diagnoses Not on filedocumented in this encounter Care Teams Keyboard Action Assembler Relationship Specialty Start Date End Date Nikko Robbins MD [address] [place] [address] PCP - General Internal Medicine 07/21/17 documented as of this encounter Additional Source Comments The information contained in this document represents components of the legal health record. It is not the complete legal health record.[facility]
--- OUTSIDE RECORDS SUMMARY | 2025-06-02 18:37 | XMS_ITS | Clinical Summary ---
Author Organization [facility] Address [address] [place] [phone] Phone Care Team Providers Care Cupola Tapper Helper Name Role Phone Nikko Robbins MD [...] Description 05/09/2025 1:15 PM EDT Office Visit [facility] Plastic and Reconstructive Surgery [address] [place] [address], 4th Floor, [address] [place] [address] Dilshad Grossman MD Arm pain, anterior, left (Primary Dx) 04/20/2025 9:33 AM EDT Anesthesia Event [facility] PERIOPERATIVE DEPT [address] [place] [phone] Alexander Bravo MD Marden, Britta M, RN 04/20/2025 9:30 AM EDT - 04/20/2025 12:10 PM EDT Surgery [facility] PERIOPERATIVE DEPT [address] [place] [phone] Dilshad Grossman MD RADIAL TUNNEL RELEASE AND LATERAL EPICONDYLITIS DEBRIDEMENT 04/20/2025 8:00 AM EDT Ancillary Procedure [facility] Imaging Bedside Ultrasound VRT [address] [place] [address] Alana Chaparro MD, PhD Meghana Childers MD 04/20/2025 7:43 AM EDT - 04/20/2025 3:51 PM EDT Hospital Encounter [facility] PERIOPERATIVE DEPT [address] [place] [phone] Meghana Chiledrs MD Eberlin, Kyle R, MD Discharge Disposition: Home or Self Care 04/20/2025 Procedure Pass [facility] PERIOPERATIVE DEPT [address] [place] [phone] 04/05/2025 1:00 PM EDT Pre-Admission Testing [facility] Pre-Procedure Evaluation Department [place] [phone] Meghana Childers MD 03/30/2025 3:15 PM EDT Office Visit [facility] Department of Orthopaedic Surgery, Hand & Upper Extremity Service [address] [place] [address], 2nd Floor, [address] [place] [address] Meghana Childers MD McCarty, Justin C, DO Left lateral epicondylitis (Primary Dx) 03/30/2025 1:57 PM EDT - 03/30/2025 11:59 PM EDT Hospital Encounter [facility] for [facility]patient Care - Ultrasound [address] [place] [address] Roberto Carlos Antoine, Discharge Disposition: Home or Self Care 03/30/2025 Transcribe Orders [facility] for [facility]patient Care, Radio Flouroscopy [address] [place] [address] Meghana Espinal 03/28/2025 9:00 AM EDT Office Visit [facility] Department of Orthopaedic Surgery, Hand & Upper Extremity Service 55 [facility], 2nd Floor, [address] [place] [address] Meghana Childers MD Left lateral epicondylitis (Primary Dx) 03/28/2025 Procedure Pass [facility] - Ultrasound [address] [place] [address] 03/28/2025 Ancillary Orders [facility] [address] [place] [address] Meghana Childers MD 03/24/2025 Orders Only [facility] Department of Orthopaedic Surgery, Hand & Upper Extremity Service 55 [facility], 2nd Floor, [address] [place] [address] Patrica Angelo MA Elbow pain (Primary Dx) 03/08/2025 - 03/08/2025 11:59 PM EDT Hospital Encounter [facility] [address] [place] [address] Meghana Childers MD Discharge Disposition: Home or [...] Description 06/06/2025 1:45 PM EDT Office Visit [facility] Plastic and Reconstructive Surgery [address] [place] [address], 4th Floor, [address] [place] [address] Dilshad Grossman MD [address] [place] [phone] [email or web address] Health Maintenance Due Date Last Done Comments [...] Procedure Name Priority Date/Time Associated Diagnosis Comments CT ANESTHESIA PERIPHERAL BLOCK PLACEHOLDER Routine 04/20/2025 12:45 PM EDT AIRWAY PLACEMENT Routine 04/20/2025 9:[address] TENOTOMY ELBOW LATERAL/MEDIAL PERCUTANEOUS 04/20/2025 9:36 AM [...] EDT from Last 3 Months Results * CT ANESTHESIA PERIPHERAL BLOCK PLACEHOLDER (04/20/2025 12:45 PM EDT) Narrative Alana Chaparro MD, PhD - 04/20/2025 12:45 PM EDT Alana Chaparro MD, PhD 04/20/2025 12:46 PM Peripheral Block Placement Procedure Note: Reason for block: surgeon request, at patient's request and post op pain managment Block performed by: fellow/resident/MOTOR VEHICLE DISPATCHER Anesthesiologist: Kendall Us MD Fellow/Resident/MOTOR VEHICLE DISPATCHER: Alana Chaparro MD, PhD Other person performing block: Clemente Sainz MD, MPH [place] Protocol Performed: consent obtained, patient identified with 2 identifiers, correct procedure verified, correct site and laterality confirmed, verified equipment, coagulation status reviewed and implant history reviewed. Procedure Details: ASA monitors applied during procedure and vitals signs recorded in nursing flowsheet during procedure. Block type: single shot Ultrasound device used: [employer] Laterality: left Block location: upper extremity and [...] by the patient. us Kendall Us MD CT ANESTHESIA Final Result * ANES ETT DOUBLE LUMEN - AIRWAY LDA (04/20/2025 9:55 AM EDT) Artem Alexandra Meng, CRNA - 04/20/2025 9:55 AM EDT Artem Campbell CRNA 04/20/2025 9:56 AM Airway Placement Procedure Note: Procedure performed by: fellow/resident/MOTOR VEHICLE DISPATCHER Anesthesiologist: Alexander Bravo MD Fellow/Resident/MOTOR VEHICLE DISPATCHER: Artem Campbell CRNA Airway procedure initiated at:04/20/2025 9:55 AM and ended at. Personal Protective Equipment: Mask: surgical mask Eye Protection: eye shield Gloves: gloves Mask Ventilation: Quality: not attempted Airway Placement: Technique: LMA Rapid sequence induction: no LMA Insertion: LMA size: 4 LMA placement attempts: 1. Outcomes: Evidence of dental injury? no us Alexander Bravo MD CT ANESTHESIA Final Result * HCG, urine (04/20/2025 8:01 AM EDT) URINE TEST Negative Negative [facility] Urine (Urine) 04/20/2025 8:0 1 AM EDT 04/20/2025 8:20 AM EDT us Meghana Childers MD URINE [place]AB[place] [address] * ANESTHESIA POINT OF CARE IMAGE CAPTURE (04/20/2025 7:59 AM EDT) Anatomical Region Laterality Modality Ultrasound Narrative 04/20/2025 7:59 AM EDT Alana Chaparro MD, PhD 04/20/2025 7:59 AM Anesthesia Point of Care Image Capture Performed by: Alana Chaparro MD, PhD Authorized by: Alana Chaparro MD, PhD Accession Number: [id number] us Alana Chaparro MD, PhD IMG POINT [...] R/o radial tunnel syndrome PROCEDURE: Ultrasound-guided steroid/anesthetic vulcanizing press operator: Dr. Philip Vizcaino, the teaching physician performed [...] Epic:R/o radial tunnel syndrome PROCEDURE: Ultrasound-guided steroid/anesthetic vulcanizing press operator: Dr. Philip Vizcaino, the teaching physician performed [...] (No Interpretation) (03/08/2025 12:00 AM EDT) Narrative [facility] IMG INTERFACES - 03/28/2025 8:59 AM EDT This study is for PACS storage only and not for interpretation. us Meghana ESCOBEDOG OUTSIDE IMAGING W/OUT INTERP RETATION Final Result [facility] INTERFACES from Last 3 Months Insurance [facility] [place] [place] [address] [facility] Care Teams Cupola Tapper Helper Relationship Specialty Start Date End Date Nikko Robbins MD [address] [place] [address] PCP - General Internal Medicine 07/21/17 Additional Source Comments The information contained in this document represents components of the legal health record. It is not the complete legal health record.[facility]
--- OUTSIDE RECORDS SUMMARY | 2025-06-02 18:37 | XMS_ITS | Encounter Summary ---
Author Organization [facility] Address [facility] [employer] [facility] [address] [place] [address] Phone Care Team Providers Care Pet Care Worker Name Role Phone Nikko Robbins MD Primary Care Provider Encounter Details Date Type Department Care Team (Late st Contact Info) Description 04/20/[address] [facility] [place] [address] [place] [phone] Social History Tobacco Use Types [...] PM EDT Office [facility]ive Surgery [address] [facility], 4th Floor, [address] [place] [address] Dilshad Grossman MD [address] [place] [address] [email or web address] documented as of this encounter Visit Diagnoses Not on filedocumented in this encounter Care Teams Pet Care Worker Relationship Specialty Start Date End Date Nikko Robbins MD [address] [place] [phone] PCP - General Internal Medicine 07/21/17 documented as of this encounter Additional Source Comments The information contained in this document represents components of the legal health record. It is not the complete legal health record.[facility]
== END 2025-06-02 15:28 | disposition home or self-care (01) ==
LOC: HO.HMGCX 15:27
PROVIDERS: PCP Internal Medicine; Visit Provider Internal Medicine Rheumatology
DX: M54.2 Cervicalgia (principal)
CPT/HCPCS: 72040

== ENCOUNTER → 2025-06-02 15:30 | Outpatient (BNV) | payer BC, SELFPAY | PROVIDERS: PCP Internal Medicine; Visit Provider Radiology Diagnostic Radiology | DX: M50.323 Other cervical disc degeneration at C6-C7 level (principal) | CPT/HCPCS: 72040 ==

== ENCOUNTER 2025-09-07 09:38 | Outpatient (AMB) | payer BC, SELFPAY ==
[2025-09-07 09:40] VITALS: BP 98/50; PULSE 68; O2SAT 98; BMI 23.7
--- NOTE | 2025-09-07 09:40 | A.OFFVIS_ITS ---
Vital Signs 09/07/25 09:40 Height 5 ft 9 in Weight 160 lb 7.944 oz BMI 23.7 BP 98/50 L Blood Pressure Location Lt brachial Position Sitting Pulse 68 Pulse Source Pulse Oximeter Pulse Oximetry (%) 98 Oxygen Delivery Method Room Air Intake Visit Reasons: 3months Intake Note: Patient is here to follow up on OA. Accompanied by: Self / Same As Patient Allergies bacitracin (From Triple Antibiotic) Allergy (Mild, Verified 09/07/25 09:40) Rash celecoxib (From Celebrex) Allergy (Mild, Verified 09/07/25 09:40) Rash neomycin (From Triple Antibiotic) Allergy (Mild, Verified 09/07/25 09:40) Rash polymyxin B (From Triple Antibiotic) Allergy (Mild, Verified 09/07/25 09:40) Rash medical tape Allergy (Mild, Uncoded 08/25/24 08:43) Rash HPI HPI 3months: Details: She continues to have neck pain. She has been doing exercises at home. Feels well. No recent infections. [facility] Medical History Spondylarthritis Surgical History No pertinent past surgical history Family History Father Stroke Hypertension Mother Hypertension Hypercholesterolemia Diabetes Social History Alcohol intake: current Alcohol intake frequency: holidays/special occasions only Patient Tobacco Use Status: Never used Tobacco Physical Exam Vital Signs: Last Vital Signs Pulse 68 09/07/25 09:40 BP 98/50 L 09/07/25 09:40 Pulse Ox 98 09/07/25 09:40 Oxygen Delivery Method Room Air 09/07/25 09:40 BMI result Body Mass Index 23.7 Const Other: General: Comfortable CVS: RRR Respiratory: clear to auscultation bilaterally. Good respiratory effort Skin: No lesions seen MSK: Full range of motion of cervical spine. No tender joints. No synovitis of any joints. Normal range of motion of upper extremities and lower extremities. No dactylitis. 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 Sulfasalazine started 02/08/2023 until present. Code(s): M47.819 - Spondylosis without myelopathy or radiculopathy, site unspecified Category: Medical Plan: Reduce sulfasalazine 500 mg b.i.d. Labs for disease and drug monitoring on high-risk medication ordered Return to clinic in 3 months (2) Neck pain: Comment: Due to spondylosis. She also has straightening of cervical spine suggesting myofascial strain is contributing. Improvement with lidocaine patch. Code(s): M54.2 - Cervicalgia Category: Medical Plan: Continue to apply lidocaine patch to affected area daily at night Apply heat to affected area daily PT ordered. Requisition given to patient to have local to her home per her request Return to clinic in 3 months (3) Other roasterman (current) drug therapy: Code(s): Z79.899 - Other roasterman (current) drug therapy Category: Medical Plan: See above (4) Cervical spondylosis: Code(s): M47.812 - Spondylosis without myelopathy or radiculopathy, cervical region Category: Medical Plan: See above Orders: Orders Complete Blood Count Auto Diff Today Z79.899 - Other roasterman (current) drug therapy Alanine Aminotransferase Today Z79.899 - Other roasterman (current) drug therapy Aspartate Amino Transferase Today Z79.899 - Other roasterman (current) drug therapy Creatinine Today Z79.899 - Other senior care (current) drug therapy C Reactive Protein Today Z79.899 - Other roasterman (current) drug therapy PT Evaluation and Treatment Today M47.812 - Spondylosis without myelopathy or radiculopathy, cervical region Erythrocyte Sedimentation Rate Today Z79.899 - Other senior care (current) drug therapy Medications: Changed From sulfasalazine Dispense 90 day supply 1,000 mg (2 x 500 mg) PO BID 90 days 360 tabs 0RF To sulfasalazine Dispense 90 day supply 500 mg PO BID 180 tabs 0RF 90 days Coding Level of Care Code Est Pt Level 4 (02030) Add On Problem Visit Only Diagnoses Spondylarthritis M47.819 Neck pain M54.2 Other roasterman (current) drug therapy Z79.899 Cervical spondylosis M47.812
--- OUTSIDE RECORDS SUMMARY | 2025-09-07 11:12 | XMS_ITS | Encounter Summary ---
Author Organization [facility] Address [address] [place] [address] [place] [phone] Phone Care Team Providers Care Feltmaker Name Role Phone Nikko Robbins MD Primary Care Provider Encounter Details Date Type Department Care Team (Late st Contact Info) Description 03/30/2025 Transcribe Orders [facility] for [facility]patient Care, Radio Flouroscopy [address] [place] [address] Meghana Espinal [address] [place] [phone] [email or web address] [email or web address] Social History Tobacco Use Types Packs/Day [...] on filedocumented in this encounter Care Teams Feltmaker Relationship Specialty Start Date End Date Nikko Robbins MD [address] [place] [address] PCP - General Internal Medicine 07/21/17 documented as of this encounter Additional Source Comments The information contained in this document represents components of the legal health record. It is not the complete legal health record.[facility]
--- OUTSIDE RECORDS SUMMARY | 2025-09-07 11:12 | XMS_ITS | Encounter Summary ---
Author Organization [facility] Address [address] [place] [address] [place] [address] Phone Care Team Providers Care Maintenance Apprentice Name Role Phone Nikko Robbins MD Primary Care Provider Encounter Details Date Type Department Care Team (Late st Contact Info) Description 03/28/2025 Procedure Pass [facility] for Outpatient Care - Ultrasound [address] [place] [address] Social History Tobacco Use Types Packs/Day Years [...] on filedocumented in this encounter Care Teams Maintenance Apprentice Relationship Specialty Start Date End Date Nikko Robbins MD [address] [place] [address] PCP - General Internal Medicine 07/21/17 documented as of this encounter Additional Source Comments The information contained in this document represents components of the legal health record. It is not the complete legal health record.[facility]
--- OUTSIDE RECORDS SUMMARY | 2025-09-07 11:12 | XMS_ITS | Encounter Summary ---
Author Organization [facility] Address [facility] [address] [place] [phone] Phone Care Team Providers Care Field Investigator Name Role Phone Nikko Robbins MD Primary Care Provider Encounter Details Date Type Department Care Team (Late st Contact Info) Description 08/04/2017 Procedure Pass [facility] PERIOPERATIVE DEPT [address] [place] [address] Social History Tobacco Use Types Packs/Day Years [...] on filedocumented in this encounter Care Teams Field Investigator Relationship Specialty Start Date End Date Nikko Robbins MD [address] [place] [phone] PCP - General Internal Medicine 07/21/17 documented as of this encounter Additional Source Comments The information contained in this document represents components of the legal health record. It is not the complete legal health record.[facility]
--- OUTSIDE RECORDS SUMMARY | 2025-09-07 11:12 | XMS_ITS | Encounter Summary ---
Author Organization [facility] Address [facility] [employer] [facility] [address] [place] [address] Phone Care Team Providers Care Riveting Machine Operator Automatic Name Role Phone Nikko Robbins MD Primary Care Provider Encounter Details Date Type Department Care Team (Late st Contact Info) Description 04/20/2025 Procedure Pass [facility] PERIOPERATIVE DEPT [address] [place] [address] Social History Tobacco Use Types [...] on filedocumented in this encounter Care Teams Riveting Machine Operator Automatic Relationship Specialty Start Date End Date Nikko Robbins MD [address] [place] [address] PCP - General Internal Medicine 07/21/17 documented as of this encounter Additional Source Comments The information contained in this document represents components of the legal health record. It is not the complete legal health record.[facility]
--- OUTSIDE RECORDS SUMMARY | 2025-09-07 11:13 | XMS_ITS | Clinical Summary ---
Author Organization [facility] Address [address] [place] [address] Phone Care Team Providers Care Speaker Mounter Name Role Phone Nikko Robbins MD Primary [...] needed for nausea. 4 tablet 5 Active HYDROcodone-acetam inophen (NORCO) 5-325 mg per tablet Take 1 tablet by mouth every 6 (six) hours as needed for pain (specific location in comments). Partial fill ok 5 tablet 5 Active lidocaine-prilocai ne (EMLA) creamIndications:A rm pain, anterior, left Apply topically as needed (to left forearm). 2-3x/daily 30 g 2 Active Active Problems Problem Noted Date Diagnosed Date Allergic rhinitis 04/20/2025 Degenerative disc disease, lumbar 04/23/2017 Encounters Date Type Department Care Team Description 06/20/2025 Orders Only [facility] [address] [facility], 4th Floor, [address] [place] [address] Reena Mcnally PA-C Arm pain, anterior, left (Primary Dx) from Last 3 Months Social History Tobacco [...] 04/05/2025 12:56 PM EDT Plan of Treatment Health Maintenance Due Date [...] 11/08/2020, 10/11/2020 Adult Td,Tdap Booster 07/23/2033 07/23/2023 RSV VACCINE (1 - 1-dose 75+ series) 2045 SMOKING STATUS SCREENING (On ce After 26 [...] this topic Medical Devices Not on file [place] [address] [address] [place] [address] [place] [address] [place] [address] [place] [address] [place] [address] Care Teams Speaker Mounter Relationship Specialty Start Date End Date Nikko Robbins MD [address] [place] [address] PCP - General Internal Medicine 07/21/17 Additional Source Comments The information contained in this document represents components of the legal health record. It is not the complete legal health record.[facility]
== END 2025-09-07 10:21 | disposition home or self-care (01) ==
LOC: HO.RHES 09:39
PROVIDERS: PCP Internal Medicine; Visit Provider Internal Medicine Rheumatology
DX: M47.819 Spondylosis without myelopathy or radiculopathy, site unspecified (principal); M54.2 Cervicalgia; Z79.899 Other long term (current) drug therapy; M47.812 Spondylosis without myelopathy or radiculopathy, cervical region
CPT/HCPCS: 99214

== ENCOUNTER 2025-09-07 09:38 | Outpatient (REF) | payer BC, SELFPAY ==
[2025-09-07 14:09] LABS: MANUAL DIFF FLAG NO
[2025-09-07 14:14] LABS: Hematocrit 36.1 % (37.0-47.0); Hemoglobin 11.9 g/dl (12.0-16.0); Imm Gran Abs Auto 0.01 X10*3/uL (0.00-0.03); Imm Gran Pct Auto 0.2 % (0.0-0.4); Lymphocytes Absolute Auto 1.0 X10*3/uL (1.2-4.9); Mean Corpuscular HGB Conc 33.0 g/dl (31.0-35.0); Mean Corpuscular Hemoglobin 31.9 pg (27.0-33.0); Mean Corpuscular Volume 96.8 fL (80.0-98.0); NRBC Abs Auto 0.000 X10*3/uL (0.0-0.012); NRBC Pct Auto 0.0 /100WBC (0.0-0.2); Platelet Count 274 X10*3/uL (160-400); Red Blood Count 3.73 X10*6/uL (4.20-5.50); White Blood Count 4.3 X10*3/uL (4.8-10.8)
[2025-09-07 15:02] LABS: Alanine Aminotransferase 34 U/L (0-31); Aspartate Amino Transferase 26 U/L (5-31); Estimated Glomerular Filt Rate > 60
== END 2025-09-07 09:39 | disposition home or self-care (01) ==
LOC: HO.HKASLDS 09:38
PROVIDERS: PCP Internal Medicine; Visit Provider Internal Medicine Rheumatology
DX: M47.812 Spondylosis without myelopathy or radiculopathy, cervical region (principal); Z51.81 Encounter for therapeutic drug level monitoring; Z79.899 Other long term (current) drug therapy
CPT/HCPCS: 36415; 82565; 84450; 84460; 85025; 85652; 86140